=== PATIENT | male | born 1985 | race Caucasian/White ===

== ENCOUNTER 2022-12-31 20:24 | Emergency (ER) | payer MEDICAID ==
[~2022-12-31] VITALS: Ht 172.7 cm; Wt 80.0 kg
[2022-12-31 20:27] VITALS: O2SAT 99
[2022-12-31] MEDS ORDERED: MUPI1OIN4 TP (22:42)
[2022-12-31] MEDS ORDERED: IBUP-2030 MT (22:42)
[2022-12-31] MEDS ORDERED: IBUPROFEN 600MG TABLET PO ONE (22:45)
[2022-12-31] MEDS ORDERED: TRAMADOL 50MG TABLET PO ONE (22:45)
[2022-12-31] MEDS ORDERED: BACITRACIN 14GM TUBE TOP ONE (23:45)
[2023-01-01 00:16] VITALS: BP 131/72; PULSE 71; RESP 19; TEMP 97.7
[2023-01-01] MEDS ORDERED: BO1 TP (11:50)
== END 2023-01-01 00:39 | disposition home or self-care (01) ==
LOC: ER 20:24
DX: T23.202A Burn of second degree of left hand, unspecified site, initial encounter (principal); T79.9XXA Unspecified early complication of trauma, initial encounter; X08.8XXA Exposure to other specified smoke, fire and flames, initial encounter; Y93.89 Activity, other specified; Y92.89 Other specified places as the place of occurrence of the external cause; Y99.8 Other external cause status
CPT/HCPCS: 99283; 99284

== ENCOUNTER 2023-01-01 11:19 | Emergency (ER) | payer MEDICAID ==
[~2023-01-01] VITALS: Ht 172.7 cm; Wt 100.0 kg
[~2023-01-01 11:19] MED LIST: IBUP-2030 MT; MUPI1OIN4 TP
[2023-01-01 11:21] VITALS: BP 140/78; O2SAT 98
[2023-01-01] MEDS ORDERED: BO1 TP (11:50)
[2023-01-01 12:00] VITALS: PULSE 72; RESP 18; TEMP 97.9
== END 2023-01-01 12:01 | disposition home or self-care (01) ==
LOC: ER 11:19
DX: T23.202A Burn of second degree of left hand, unspecified site, initial encounter (principal); T79.9XXA Unspecified early complication of trauma, initial encounter; X08.8XXA Exposure to other specified smoke, fire and flames, initial encounter; Y93.89 Activity, other specified; Y92.89 Other specified places as the place of occurrence of the external cause; Y99.8 Other external cause status
CPT/HCPCS: 99282